=== PATIENT | male | born 1995 | race Caucasian/White ===

== ENCOUNTER 2020-07-13 11:57 | Outpatient (REF) | payer BC, SELFPAY | END 2020-07-13 11:58 | disposition home or self-care (01) | LOC: HO.WFDLDS 11:57 | PROVIDERS: Visit Provider Internal Medicine | DX: Z20.828 Contact with and (suspected) exposure to other viral communicable diseases (principal) | CPT/HCPCS: C9803; U0003 ==

== ENCOUNTER 2022-07-05 12:15 | Outpatient (REF) | payer BC, SELFPAY ==
[2022-07-05 14:13] LABS: MANUAL DIFF FLAG NO
[2022-07-05 14:22] LABS: Basophils Percent Auto 0.7 % (0-2); Eosinophils Absolute Auto 0.1 X10*3/uL (0.0-0.4); Eosinophils Percent Auto 1.3 % (0-4); Hematocrit 42.2 % (42.0-52.0); Hemoglobin 15.1 g/dl (14.0-18.0); Imm Gran Abs Auto 0.02 X10*3/uL (0.00-0.03); Imm Gran Pct Auto 0.4 % (0.0-0.4); Lymphocytes Absolute Auto 1.6 X10*3/uL (1.2-4.9); Lymphocytes Percent Auto 28.2 % (20-40); Mean Corpuscular HGB Conc 35.8 g/dl (31.0-36.0); Mean Corpuscular Hemoglobin 31.5 pg (27.0-33.0); Mean Corpuscular Volume 87.9 fL (80.0-98.0); Mean Platelet Volume 11.8 fL (9.4-12.4); Monocytes Absolute Auto 0.4 X10*3/uL (0.1-1.2); Neutrophils Absolute Auto 3.5 x10*3/uL (2.0-8.3); Neutrophils Percent Auto 62.4 % (45-73); Platelet Count 276 X10*3/uL (160-400); Red Cell Distribution Width 11.5 % (11.0-16.0); White Blood Count 5.5 X10*3/uL (4.8-10.8)
[2022-07-05 15:01] LABS: Anion Gap 15 (12-20); Blood Urea Nitrogen 11 mg/dL (9-16); Calcium 9.6 mg/dL (8.4-10.2); Carbon Dioxide 28 mmol/L (22-29); Chloride 103 mmol/L (96-108); Cholesterol 146 mg/dL; Estimated Glomerular Filt Rate > 60; Glucose Random 83 mg/dL (60-115); Potassium 4.3 mmol/L (3.3-5.1); Sodium 142 mmol/L (135-145)
[2022-07-05 15:04] LABS: Thyroid Stimulating Hormone 2.43 uIU/mL (0.32-4.0)
[2022-07-05 15:55] LABS: Vitamin B12 260 pg/mL (200-900)
== END 2022-07-05 12:16 | disposition home or self-care (01) ==
LOC: HO.10HDL 12:15
PROVIDERS: Visit Provider Internal Medicine
DX: Z00.00 Encounter for general adult medical examination without abnormal findings (principal); R53.83 Other fatigue
CPT/HCPCS: 36415; 80048; 82465; 82607; 84443; 85025

== ENCOUNTER 2022-09-13 08:27 | Outpatient (REF) | payer BC, SELFPAY ==
[2022-09-13 11:33] LABS: Alanine Aminotransferase 14 U/L (0-40); Albumin Level 4.4 g/dL (3.5-5.0); Alkaline Phosphatase 83 U/L (39-117); Anion Gap 13 (12-20); Aspartate Amino Transferase 17 U/L (5-37); Bilirubin Total 0.6 mg/dL (0.0-1.0); Blood Urea Nitrogen 12 mg/dL (9-16); Calcium 9.5 mg/dL (8.4-10.2); Carbon Dioxide 26 mmol/L (22-29); Chloride 105 mmol/L (96-108); Estimated Glomerular Filt Rate > 60; Glucose Random 90 mg/dL (60-115); Lipase 15 U/L (8-78); Potassium 4.3 mmol/L (3.3-5.1); Sodium 140 mmol/L (135-145); Total Protein 7.2 g/dL (6.5-8.0)
[2022-09-14 14:21] LABS: H Pylori Breath Test Negative (Negative)
== END 2022-09-13 08:28 | disposition home or self-care (01) ==
LOC: HO.LAB 08:27
PROVIDERS: PCP Internal Medicine; Visit Provider Nurse Practitioner Family
DX: R13.12 Dysphagia, oropharyngeal phase (principal); R10.13 Epigastric pain; K21.9 Gastro-esophageal reflux disease without esophagitis; R63.4 Abnormal weight loss
CPT/HCPCS: 36415; 80053; 83013; 83690

== ENCOUNTER 2022-09-19 09:47 | Day surgery (SDC) | payer BC, SELFPAY ==
--- NOTE | 2022-09-16 10:58 | HO.ANESPROP2 ---
Documented by User: Christianne Jordan NP 09/16/22 10:59 HPI - Anesthesia Eval Consult details Narrative: 26yo M for Upper Endoscopy [facility] [place] Active Problems Active Problems: All Active Problems (Updated 09/13/22 @ 16:50 by CHANI Shields) Dysphagia (Acute) Dyspepsia (Acute) Past Medical History Medical History (Updated 09/13/22 @ 16:50 by CHANI Shields) Dyspepsia Dysphagia Surgical History Surgical History (Updated 09/19/22 @ 10:40 by Tosha Mccormack) History of ankle surgery Social History Social History (Updated 09/13/22 @ 08:35 by Dileep Huynh) Household Members: Family Alcohol intake: never Patient Tobacco Use Status: Never used Tobacco Advance Directives: No Advance Directives Information Provided: Yes service: No Current occupational status: employed Sexual orientation: Straight/Heterosexual Meds Allergies Allergy/AdvReac Type Severity Reaction Status Date / Time diphenhydramine Allergy Unknown Verified 09/19/22 10:41 [From Benadryl] Home Medications Medication Instructions Recorded Confirmed Last Taken Type bupropion HCl 150 mg 24 hr tablet, 150 mg PO DAILY 09/13/22 09/19/22 Unknown History extended release buspirone 10 mg tablet 10 mg PO DAILY PRN Anxiety 09/13/22 09/19/22 Unknown History Exam Exam Date and Time: September 16, 2022 1058 Pertinent Lab Results Pertinent Lab Results: Laboratory Tests 07/05/22 09/13/22 12:20 09:42 WBC 5.5 Hgb 15.1 Hct 42.2 Plt Count 276 Sodium 140 Potassium 4.3 Chloride 105 Carbon Dioxide 26 BUN 12 Creatinine 0.85 Assessment and Plan Assessment Anesthesia Assessment: Chart Reviewed Documented by User: Mel Correa MD 09/19/22 11:24 [facility] Past Medical History Medical History (Updated 09/13/22 @ 16:50 by CHANI Shields) Dyspepsia Dysphagia Family History Family history of problems with anesthesia: No Surgical History Surgical History (Updated 09/19/22 @ 10:40 by Tosha Mccormack) History of ankle surgery History of Problems with Anesthesia: No Social History Social History (Updated 09/13/22 @ 08:35 by Dileep Huynh) Household Members: Family Alcohol intake: never Patient Tobacco Use Status: Never used Tobacco Advance Directives: No Advance Directives Information Provided: Yes service: No Current occupational status: employed Sexual orientation: Straight/Heterosexual Meds Allergies Allergy/AdvReac Type Severity Reaction Status Date / Time diphenhydramine Allergy Unknown Verified 09/19/22 10:41 [From Benadryl] Home Medications Medication Instructions Recorded Confirmed Last Taken Type bupropion HCl 150 mg 24 hr tablet, 150 mg PO DAILY 09/13/22 09/19/22 Unknown History extended release buspirone 10 mg tablet 10 mg PO DAILY PRN Anxiety 09/13/22 09/19/22 Unknown History Exam Airway Mallampati Class: II TM Dist: >3cm Neck ROM: Full Heart: rrr Lungs: cta Assessment and Plan Assessment Anesthesia Assessment: Anesthesia Plan Discussed and Chart Reviewed Final Anesthetic Review Family History of Problems with Anesthesia: No History of Problems with Anesthesia: No NPO: Yes ASA Class: II Final Preanesthetic Review: No Changes in Pt Med Stat, Meds/Allgs Chart Reviewed and Consent Obtained/Reviewed Patient Risk: Intermediate Procedure Risk: Intermediate Anesthetic Plan Anesthetic Plan: MAC: Disposition: Standard PACU
--- NOTE | 2022-09-19 10:38 | MHC.SHP ---
Pre-Procedural Eval Section A Date of Service: 09/19/22 The patient is an INPATIENT: No Changes since office visit: Yes Patient answered all questions; No Cold of Flu in the past 2 weeks, No New Medical Problems and No Changes in Medication The History & Physical has been completed within 30 days and I have reviewed it.: Yes Section B Chief Complaint: Dysphagia, Allergies: Allergies Allergy/AdvReac Type Severity Reaction Status Date / Time No Known Allergies Allergy Unverified 09/13/22 08:36 [No Known Allergies*] Plan I have reviewed the history and physical and performed a pertinent physical examination on my patient. No changes have occurred unless specified. Time Spent With Patient Time: Total time managing care of this patient today ____ minutes.
--- NOTE | 2022-09-19 10:39 | P.BOP_ITS ---
Brief Operative Note Date of Service: 09/19/22 Pre-op diagnosis: dysphagia, dyspepsia, WT LOSS Post-op diagnosis: other ( GERD, gastritis) Procedure: EGD WITH BIOPSIES Surgeon: Livia Gaitan MD Anesthesia: MAC Was an Medical Social Consultant used for this Procedure?: Yes Medical Social Consultant: Caridad Hewitt Estimated blood loss (mL): 0 Pathology: other (A: biopsy small bowel to rule out celiac disease B: gastric biopsy to rule out gastritis C: proximal esophagus to rule out gluten) Condition: stable Disposition: PACU
[2022-09-19 10:43] VITALS: BP 122/78; PULSE 69; RESP 16; TEMP 36.4; O2SAT 98; BMI 19.5
[2022-09-19] MEDS: Lactated Ringers 1,000 ML 100 ML IVCONT (11:04)
--- NOTE | 2022-09-19 11:31 | P.OP_ITS ---
Operative Note Operative Note Date of Service: 09/19/22 Narrative: Pre-op diagnosis: dysphagia, dyspepsia Post-op diagnosis:?other ( GERD, gastritis) Anesthesia:?MAC FLEXIBLE TRANSORAL UPPER GASTROINTESTINAL ENDOSCOPY WITH BIOPSIES Consent: Indications for the procedure and potential complications of bleeding, perforation, reaction to medications and missed diagnosis were discussed with the patient and informed consent was obtained. Instrument: Olympus GIF H 190 mid size upper endoscope Monitoring: Vital signs and clinical assessment, continuous EKG monitoring, Pulse oximetry, Carbon Dioxide monitoring and blood pressure monitoring were done throughout the procedure. Procedure: The patient was placed in the left lateral decubitis position and pre-procedure medications were administered and a bite block was placed. The endoscope was inserted into the mouth and advanced under direct vision to the third part of duodenum. A careful inspection was made as the upper endoscope was withdrawn including a retroflexed examination of the proximal stomach; Findings and interventions are described below. Findings: Larynx: Normal Esophagus: GE junction at 40 cms. No esophagitis or Acuña's, stricture or ring. Biopsies were obtained from proximal esophagus to check for EOE Stomach: Moderate diffuse gastric erythema. Biopsies were obtained. Grade 2 flap valve on retroflexed examination of the cardia. Duodenum: Normal bulb and descending duodenum. Biopsies were obtained from 3rd part of the duodenum to check for celiac sprue Intervention: Biopsies as noted above Impression and Post Procedure Diagnosis: Endoscopy Findings: ESOPHAGUS: GE junction at 40 cms. No esophagitis or Acuña's, stricture or ring. Biopsies were obtained from proximal esophagus to check for EOE STOMACH: Moderate diffuse gastric erythema. Biopsies were obtained. DUODENUM: Normal biopsied to check for celiac sprue Plan: Await pathology results Patient has an appointment on 10/03/22 in the GI Clinic with Dahiana Elder FNP- [place]. Above findings were reviewed with the patient and Gastritis handout was given in the discharge area
[2022-09-19 11:53] VITALS: BP 79/31; PULSE 75; RESP 20; TEMP 36.6; O2SAT 99
[2022-09-19 12:08] VITALS: BP 108/68; PULSE 66; RESP 16; TEMP 36.6; O2SAT 99
== END 2022-09-19 12:49 | disposition home or self-care (01) ==
PROVIDERS: PCP Internal Medicine; Visit Provider Internal Medicine Gastroenterology
PROC: 0DJ08ZZ Inspection of Upper Intestinal Tract, Via Natural or Artificial Opening Endoscopic (ICD-10-PCS; CPT 43235; principal; 2022-09-19 11:10)
DX: R13.10 Dysphagia, unspecified (principal); R10.13 Epigastric pain; R63.4 Abnormal weight loss; Z68.1 Body mass index [BMI] 19.9 or less, adult; K21.9 Gastro-esophageal reflux disease without esophagitis; K29.50 Unspecified chronic gastritis without bleeding
CPT/HCPCS: 43239; 88305; 88342

== ENCOUNTER → 2022-10-03 09:59 | Outpatient (BNVA) | payer BC, SELFPAY | PROVIDERS: PCP Internal Medicine; Visit Provider Nurse Practitioner Family | DX: Z13.89 Encounter for screening for other disorder (principal) ==

== ENCOUNTER 2025-06-10 16:16 | Outpatient (AMB) | payer BC, SELFPAY ==
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
[2025-06-10 16:22] VITALS: BP 130/72; PULSE 73; RESP 16; TEMP 36.5; O2SAT 96; BMI 23.0
--- OUTSIDE RECORDS SUMMARY | 2025-06-10 18:51 | XMS_ITS | Clinical Summary ---
Author Organization [facility] Address [address] [address] Phone Care Team Providers Care K 9 Handler/ Deputy Name Role Phone Dirk Bell MD Primary Care Provider Allergies Active Allergy Reactions Criticality Noted Date Comments Diphenhydramine Hcl 06/22/2022 Medications sertraline (ZOLOFT) 50 MG tablet Take 1 tablet by mouth every morning. 04/26/2023 Active ibuprofen (ADVIL,MOTRIN) 800 MG tablet Take 1 tablet (800 mg total) by mouth 3 (three) times a day for 3 days. then tid prn. 30 tablet 05/18/2023 Active cyclobenzaprine (FLEXERIL) 10 MG tablet Take 1 tablet (10 mg total) by mouth 3 (three) times a day as needed (muscle). 15 tablet 05/18/2023 Active Active Problems No known active problems Immunizations Immunization Administration Dates Next Due DTaP 11/13/2002, 9,04/16/1998,02/17,1997 [id number] FORMULATION 07/05/2009 HPV9 02/08/2016,04/07/2015,02/05/2015 Hepatitis B 07/16/1998,1997,1997 Hib,PRP-T 01/14/1999, 8,02/17/1998,12/19 INFLUENZA, SPLIT VIRUS, TRIV ALENT W/ PRESERVATIVE IM 09/02/2021 IPV 11/13/2002,02/17/1998,1997 Influenza Quadrivalent Prese rvative Free IM 07/12/2020 MMR 10/19/2001,10/22/1998 Meningococcal MCV4P 01/31/2014,12/02/2008 Pneumococcal conjugate, PCV 7 05/19/2000 Polio - OPV 10/22/1998 Tdap 12/02/2008 Varicella 10/25/2007,05/19/2000 Social History Tobacco Use Types Packs/Day Years Used Date Smoking Tobacco: Never Smokeless Tobacco: Never Tobacco Cessation:Counseling Given: Not Answered Alcohol Use Standard Drinks/Week Comments No 0 (1 standard drink = 0.6 oz pur e alcohol) Education Answer Date Recorded Are you interested in more education? Not on karyn e 12/30/2022 Are you concerned about learning? Not on file 12/30/2022 No 12/30/2022 No 12/30/2022 Digital Access Answer Date Recorded No 01/27/2023 No 01/27/2023 Reliable internet access at home? Not on file 01/27/2023 Device with a working camera? Not on file Sex and Gender Information Value Date Recorded Sex Assigned at Male 07/26/2022 1:52 AM EST Legal Sex Male 8:49 PM EDT Gender Identity Male 07/26/2022 1:52 AM EST Sexual Orientation Not on file Last Filed Vital Signs Vital Sign Reading Time Taken Comments Blood Pressure 116/70 05/18/2023 11:56 AM EDT Pulse 68 05/18/2023 11:56 AM EDT Temperature 36.8 C (98.3 F) 05/18/2023 11:56 AM EDT Respiratory Rate 18 05/18/2023 11:56 AM EDT Oxygen Saturation 99% 05/18/2023 11:56 AM EDT Inhaled Oxygen Concentration - - Weight 72.6 kg (160 lb) 05/18/2023 11:56 AM EDT Height 182.9 cm (6') 07/16/2017 5:24 PM EST Body Mass Index 21.7 07/16/2017 5:24 PM EST Plan of Treatment Health Maintenance Due Date Last Done Comments DEPRESSION SCREENING 2009 HEPATITIS C SCREENING 2015 HIV ONE-TIME SCREENING (18-65 YEARS) 2015 Adult Td,Tdap Booster 12/02/2018 12/02/2008 INFLUENZA VACCINE (#1) 2025 1, 07/12/2020, 07/05/2009 COVID-19 VACCINE ( season) 2025 09/02/2021, 01/31/2021, 01/08/2021 HIB VACCINES Completed 01/14/1999, 04/04, 02/17/1998, Additional history exists PNEUMOCOCCAL VACCINES (0-49 years) Aged Out 05/19/2000 No longer eligible based on patient's age to complete this topic MENINGOCOCCAL VACCINES (ACWY) Completed 01/31/2014, 12/02/2008 SMOKING STATUS SCREENING (Once After 26 Yrs) Completed 05/18/2023 HEPATITIS A VACCINES Aged Out No long er eligible based on patient's age to complete this topic MENINGOCOCCAL VACCINES (B) Aged Out N o longer eligible based on patient's age to complete this topic Medical Devices Not on file Insurance [facility] PPO EPO [facility] PPO EPO [facility] PPO EPO [facility] PPO EPO [facility] PPO EPO [facility] PPO [facility]PO [facility] [place] [address] [place] [address] [place] [address] [place] [address] PPO EPO Care Teams K 9 Handler/ Deputy Relationship Specialty Start Date End Date Dirk Bell MD [address] [place] [address] [place] [address] PCP - General Internal Medicine 06/22/22 Additional Source Comments The information contained in this document represents components of the legal health record. It is not the complete legal health record.[facility]
--- OUTSIDE RECORDS SUMMARY | 2025-06-10 18:51 | XMS_ITS | Encounter Summary ---
Author Organization [facility] Address [address] [place] [phone] Phone Care Team Providers Care Life Skills Educator Name Role Phone Monet Castañeda MD Primary Care Provider Unavailabl e Encounter Details Date Type Department Care Team (Late st Contact Info) Description 01/21/2018 Conversion Encounter [facility] [address] [id number] Social History Tobacco Use Types Packs/Day Years Used Date Smoking Tobacco: Never Assessed Sex and Gender Information Value Date Recorded Sex Assigned at Not on file Legal Sex Male 6:16 PM EDT Gender Identity Not on file Sexual Orientation Not on file documented as of this encounter Plan of Treatment Not on file documented as of this encounter Visit Diagnoses Not on filedocumented in this encounter Care Teams Life Skills Educator Relationship Specialty Start Date End Date Monet Castañeda MD PCP - General 02/20/20 documented as of this encounter
--- OUTSIDE RECORDS SUMMARY | 2025-06-10 18:51 | XMS_ITS | Clinical Summary ---
Author Organization [facility] Address [address] [place] [phone] Phone Care Team Providers Care Iv Therapy Nurse Name Role Phone Monet Castañeda MD Primary Care Provider Unavailabl e Immunizations Immunization Administration Dates Next Due DTaP 11/13/2002, 9,04/16/1998, 998,1997 H1N1 07/05/2009 HPV Vaccine 9 Valent 02/08/2016,04/07/2015,02/05 Hep B, ped/adol 07/16/1998,1997,1997 Hib (PRP-T) 01/14/1999, 8,02/17/1998, 998 IPV 11/13/2002,02/17/1998,1997 MMR 10/19/2001,10/22/1998 Meningococcal Conj (Menactra) MCV4P 01/31/2014,0 12/02/2008 OPV 10/22/1998 Pneumococcal Conjugate 05/19/2000 Tdap 12/02/2008 Varicella 10/25/2007,05/19/2000 Family History Relation Name Status Comments Father Alive healthy, name i s darryl age: 50 Father's Sister Alive healthy Maternal Grandfather Alive healthy , hypertension, hyperlipidemia diagnosed with Hypertension, Hypercholesteremia Maternal Grandmother Alive healthy Mother Alive healthy, name i s jacki paulino age: 47 Other Alive Siblings: healt hy Paternal Grandfather Alive stroke, Niddm Paternal Grandmother Alive healthy Social History Tobacco Use Types Packs/Day Years Used Date Smoking Tobacco: Never Assessed Sex and Gender Information Value Date Recorded Sex Assigned at Not on file Legal Sex Male 6:16 PM EDT Gender Identity Not on file Sexual Orientation Not on file Last Filed Vital Signs Vital Sign Reading Time Taken Comments Blood Pressure 118/68 05/05/2016 12:00 AM EDT Pulse - - Temperature 36.1 C (97 F) 05/05/2016 12:00 AM EDT Respiratory Rate - - Oxygen Saturation - - Inhaled Oxygen Concentration - - Weight 62.2 kg (137 lb 3.2 oz) 05/05/2016 12:00 AM EDT Height 179.1 cm (5' 10.5 ) 05/05/2016 12:00 AM E DT Body Mass Index 19.41 05/05/2016 12:00 AM EDT Plan of Treatment Health Maintenance Due Date Last Done Comments DTaP,Tdap,and Td Vaccines (7 - Td or Tdap) 12/02/2018 12/02/2008, 11/13/2002, 01/14/1999, Additional history exists Influenza Vaccines (#1) 2025 COVID-19 Vaccine ( season) 2025 Hepatitis B Vaccines Completed 07/16/1998, 1997, 1997 HIB Vaccines Completed 01/14/1999, 04/04, 02/17/1998, Additional history exists Pneumococcal Vaccine Completed 05/19/2000 MMR Vaccines Completed 10/19/2001, 10/22/1998 IPV Vaccines Completed 11/13/2002, 10/05, 02/17/1998, Additional history exists Varicella Vaccines Completed 10/25/2007, 05/19/2000 Meningococcal Vaccine Completed 01/31/2014, 009 HPV Vaccines Completed 02/08/2016, 0812/2014, 02/05/2015 Hepatitis A Vaccines Aged Out No long er eligible based on patient's age to complete this topic Men B Vaccine Aged Out No longer elig ible based on patient's age to complete this topic Care Teams Iv Therapy Nurse Relationship Specialty Start Date End Date Monet Castañeda MD PCP - General 02/20/20
--- OUTSIDE RECORDS SUMMARY | 2025-06-10 18:51 | XMS_ITS | Clinical Summary ---
Author Organization [facility] Address [address] [place] [address] Care Team Providers Care Day Haul Or Farm Charter Bus Driver Name Role Phone Pcp, No Primary Care Provider Unavailabl e Allergies Active Allergy Reactions Criticality Noted Date Comments Diphenhydramine Unknown/Patient and Family Unable to Define Medium 06/22/2022 Medications sertraline (ZOLOFT) 25 MG tablet Take 1 tablet (25 mg total) by mouth daily. Active Active Problems No known active problems Social History Tobacco Use Types Packs/Day Years Used Date Smoking Tobacco: Never Assessed Sex and Gender Information Value Date Recorded Sex Assigned at Not on file Legal Sex Male 1:48 PM EST Gender Identity Not on file Sexual Orientation Not on file Last Filed Vital Signs Vital Sign Reading Time Taken Comments Blood Pressure 110/80 10/15/2024 2:14 PM EST Pulse 84 10/15/2024 2:14 PM EST Temperature 36.7 C (98 F) 10/15/2024 2:14 PM EST Respiratory Rate 16 10/15/2024 2:14 PM EST Oxygen Saturation 98% 10/15/2024 2:14 PM EST Inhaled Oxygen Concentration - - Weight 77.1 kg (170 lb) 10/15/2024 2:14 PM EST Height 177.8 cm (5' 10 ) 10/15/2024 2:14 PM EST Body Mass Index 24.39 10/15/2024 2:14 PM EST Plan of Treatment Health Maintenance Due Date Last Done Comments Hepatitis C Virus Screening 1997 HIV Screening 2010 DTaP/Tdap/Td Vaccines (1 - Tdap) 2016 Hepatitis B Vaccines (1 of 3 - 19+ 3-dose series) 2016 COVID-19 Vaccine (2023-2 5 season) 2025 HPV Vaccines (No Doses Required) Completed Pneumococcal Vaccine: Pediat anmol (0-5 Years) and At-Risk Patients (6 to 49 Years) Aged Out No longer eligible b ased on patient's age to complete this topic Care Teams Day Ha[employer] Farm Charter Bus Driver Relationship Specialty Start Date End Date Pcp, No PCP - General General Medicine 10/15/24
--- OUTSIDE RECORDS SUMMARY | 2025-06-10 18:51 | XMS_ITS ---
Author Name [facility] Organization Unknown Encounters Encounter Type Encounter Reason Primary Diagnosis Location Date Ambulatory Encounter for other administrative examinations Encounter for other administrative examinations [facility] 10/15/2024 Care Team Organization Name Specialty Phone Email Start Date End [facility] PCP Coordinator Skill Training Program 11/13/2024 11/25/2024 [facility] NO PCP Primary Care 10/15/2024
== END 2025-06-10 17:06 | disposition home or self-care (01) ==
LOC: HO.HMCHD 16:17
PROVIDERS: PCP Internal Medicine; Visit Provider Physician Assistant
DX: Z00.00 Encounter for general adult medical examination without abnormal findings (principal); F32.9 Major depressive disorder, single episode, unspecified; L24.7 Irritant contact dermatitis due to plants, except food

== ENCOUNTER → 2025-06-10 16:16 | Outpatient (BNVA) | payer BC, SELFPAY | PROVIDERS: PCP Internal Medicine; Visit Provider Physician Assistant | DX: Z00.00 Encounter for general adult medical examination without abnormal findings (principal); F32.9 Major depressive disorder, single episode, unspecified; L24.7 Irritant contact dermatitis due to plants, except food | CPT/HCPCS: 96127 ==

== ENCOUNTER → 2025-08-25 15:50 | Outpatient (AMB) | payer BC, SELFPAY ==
--- NOTE | 2025-08-25 15:56 | MHC.PC.OV ---
Vital Signs 08/25/25 15:59 Height 5 ft 11 in Weight 74.616 kg BMI 22.9 BP 124/72 Pulse 72 Pulse Source Pulse Oximeter Temp 99.1 F Temp Source Temporal Artery Scan Pulse Oximetry (%) 98 Oxygen Delivery Method Room Air Intake Visit Reasons: Re-Evaluate Chronic Condition Auto Fleet Maintenance Manager Required: No Accompanied by: Self / Same As Patient Allergies diphenhydramine (From Benadryl) Allergy (Verified 08/25/25 15:56) Unknown Medication List - Last Reconciled 08/25/25 by AUGUSTA Khan albuterol sulfate 90 mcg/actuation (Ventolin HFA) 2 puffs inhalation QID PRN sertraline 50 mg PO DAILY Tobacco use date assessed: 06/10/25 Dental Screening Dental Screen Date: 06/10/25 HPI HPI Comments History of Present Illness Details 29-year-old male with history of anxiety presenting to the office today for follow-up. MDD/anxiety- stable on Zoloft. No si/hi. Therapy every other week. Reports exercises very helpful for his mood. Has had some anxiety significant to result in gagging and vomiting brought on by anxiety. Lately, he has been very anxious about returning to 2nd shift. He states historically, this has decompensated his mental health conditions. The very thought of going to the shift also causes great distress. Concerns: Rashes-linear rashes several areas of the body. They are pruritic. No erythema or warmth. No new contacts URI- ongoing for the last 4 days. Initially was experiencing severe headache, chest congestion, burning nasal patches. He was experiencing sweats but no fevers or shaking chills. He does state that he is feeling somewhat better but is still experiencing throat irritation and productive cough with green sputum. There is also shortness of breath or wheezing. No chest pains ROS: See HPI EXAM: Constitutional - Awake and Alert, No apparent distress Eyes - PERRLA, EOMI. Anicteric Nose- no sinus tenderness Mouth/throat- mucosa moist, tongue and uvula midline, no erythema/edema or tonsillar adenopathy Neck-trachea midline, thyroid symmetric without palpable nodules, no adenopathy Cardiovascular - S1S2, RRR, No edema Respiratory - Normal lung expansion, Normal respiratory effort, No respiratory distress, CTA bilaterally Extremities - no calf tenderness bilaterally, no swelling Skin - Warm/Dry. slightly hyperpigmented linear lesions about 3 cm by 2 mm on the upper back, right side without any surrounding erythema warmth, tunneling, pustules Neurological - Alert & oriented x3 Psychological - Appropriate affect cdh monday after poison jasmine ended up with cellulitis uri monday- headache, chest congestion, burning nasal. no fevers, or chills. sweated. overall feeling better. but still with throat irritation and green sputum production. sob, wheezing. note for work- waking dry heaving sometimes vomiting. anxiety. everything spirals as far as anxiety. PFSH Medical History (Updated 08/25/25 @ 16:43 by AUGUSTA Khan) Anxiety MDD (major depressive disorder) Dysphagia Dyspepsia Surgical History History of esophagogastroduodenoscopy (EGD) History of ankle surgery Family History (Updated 06/10/25 @ 16:51 by AUGUSTA Khan) Father Skin cancer Mother Depression with anxiety Social History Household Members: Family Housing: House Alcohol intake: never Patient Tobacco Use Status: Never used Tobacco e-Cigarette/Vaping Use: Never Used service: No Current occupational status: employed Sexual orientation: Straight/Heterosexual Questionnaire AUDIT C Alcohol Use Questionnaire (AUDIT-C) 2. How many drinks containing alcohol do you have on a typical day when you are drinking?: 1 or 2 3. How often do you have six or more drinks on one occasion?: Never Total Score: 0 Physical exam (Primary Care) Vital Signs: Last Vital Signs Temp 99.1 F 08/25/25 15:59 Pulse 72 08/25/25 15:59 BP 124/72 08/25/25 15:59 Pulse Ox 98 08/25/25 15:59 Oxygen Delivery Method Room Air 08/25/25 15:59 BMI result Body Mass Index 22.9 Tobacco/Smoking Status: Tobacco use Status Tobacco use date assessed 06/10/25 08/25/25 15:57 Patient Tobacco Use Status Never used Tobacco 08/25/25 15:57 e-Cigarette/Vaping Use Never Used 08/25/25 15:57 Coding Level of Care Code Est Pt Level 4 (19795) Diagnoses Anxiety F41.9 Dermatitis, unspecified L30.9 Viral URI J06.9 Assessment & Plan Assessment & Plan (1) Anxiety: Code(s): F41.9 - Anxiety disorder, unspecified Category: Medical Plan: Decompensated secondary to work stresses. He is given work note excusing him from 2nd shift as this will adversely affect his mental health. Continue following with therapist weekly and continue on sertraline 50 mg daily. Discussed that he may want to look into FMLA (2) Dermatitis, unspecified: Code(s): L30.9 - Dermatitis, unspecified Category: Medical Plan: Etiology unclear. Referred to Dermatology for further evaluation and management (3) Viral URI: Code(s): J06.9 - Acute upper respiratory infection, unspecified Category: Medical Plan: Symptomatic measures with cough syrups PRN, nasal sprays, sinus rinses, Tylenol as needed. He is given albuterol inhaler to help with cough/shortness of breath/wheezing. Counseled on use Plan Follow-up in the office as scheduled Orders: Referrals Dermatology Referral L30.9 - Dermatitis, unspecified, Z12.83 - Encounter for screening for malignant neoplasm of skin, Z80.8 - Family history of malignant neoplasm of other organs or systems Medications: New albuterol sulfate 90 mcg/actuation (Ventolin HFA) 2 puffs inhalation QID PRN 8.5 grams 0RF shortness of breath or wheezing
[2025-08-25 15:59] VITALS: BP 124/72; PULSE 72; TEMP 37.3; O2SAT 98; BMI 22.9
--- OUTSIDE RECORDS SUMMARY | 2025-08-25 18:40 | XMS_ITS | Encounter Summary ---
Author Organization [facility] Address [address] [place] [phone] Phone Care Team Providers Care Transit Mixer Operator Name Role Phone Monet Castañeda MD Primary Care Provider Unavailabl e Encounter Details Date Type Department Care Team (Late st Contact Info) Description 01/21/2018 Conversion [facility]counter [facility] [address] [address] Social History Tobacco Use Types Packs/Day Years [...] on filedocumented in this encounter Care Teams Transit Mixer Operator Relationship Specialty Start Date End Date Monet Castañeda MD PCP - General 02/20/20 documented as of this encounter
--- OUTSIDE RECORDS SUMMARY | 2025-08-25 18:40 | XMS_ITS | Clinical Summary ---
Author Organization Located Within [facility] Address [address] [facility] [address] [place] [address] Phone Care Team Providers Care Aircraft Loadmaster Superintendent Name Role Phone Dirk Bell MD Primary Care Provider Allergies Active Allergy Reactions Criticality Noted Date Comments Diphenhydramine Hcl 06/22/2022 Medications sertraline (ZOLOFT) 50 MG tablet Take 1 tablet by mouth every morning. 04/26/2023 Active Active Problems Problem Noted Date Diagnosed Date Cellulitis 06/14/2025 Assessment & Plan (06/14/2025 3:58 AM EDT): Patient presented with right lower extremity cellulitis with lymphangitic spread towards his calf in the setting of a contact dermatitis. Mild tenderness over the calf with no evidence of palpable cords. Patient remained afebrile and hemodynamically stable. Laboratory studies otherwise reassuring, without significant leukocytosis or left shift. Initially received IV ceftriaxone but will switch to IV Ancef for better strep and MSSA coverage. MRSA screen was negative. - Patient will be observed on MedSurg -Repeat CBC in the morning -Continue IV switch to IV Ancef 2 g every 8 hours along with lactobacillus twice daily -Continue leg elevation -Tylenol as needed for mild pain Encounters Date Type Department Care Team Description 06/14/2025 12:17 AM EDT - 06/15/2025 3:37 PM EDT Hospital Encounter [facility] [address] [place] [address] Kevin Harris MD Wong, MD Hernán Castro Lois C, MD Discharge Disposition: Home or Self Care from Last 3 Months Immunizations Immunization Administration Dates Next Due DTaP 11/13/2002, 9,04/16/1998,02/17,1997 [id number] FORMULATION 07/05/2009 HPV9 02/08/2016,04/07/2015,02/05/2015 Hepatitis B 07/16/1998,1997,1997 Hib,PRP-T 01/14/1999, 8,02/17/1998,12/19 INFLUENZA, SPLIT VIRUS, TRIVALENT PF 06/15/2025 INFLUENZA, SPLIT VIRUS, TRIV ALENT W/ PRESERVATIVE [...] on file 12/30/2022 No 12/30/2022 No 12/30/2022 Food Answer Date Recorded Within the past 6 months we worried whether our food would run out before we got money to buy more. Never True 06/14/2025 Within the past 6 months the food we bought just didn't last and we didn't have enough money to get more. Never True Residential Stability Answer Date Recor ded What is your housing situation today? I have mony [place] 06/14/2025 How many times have you move d in the past 12 months? Zero (I did not move) 06/14/2025 Paying for Meds Answer Date Recorded Do you have trouble paying for medicines? No 06/14/2025 Paying Utility Bills Answer Date Record ed Do you have trouble paying your heating or elect ricity bill? No 06/14/2025 Transportation Answer Date Recorded Has the lack of transportati on kept you from medical appointments or from getting medications? No 06/14/2025 Digital Access Answer Date Recorded No 06/14/2025 Yes 06/14/2025 Do you have reliable internet access at home? Ye s 06/14/2025 Do you have a device (e.g., phone, tablet, computer) with a working camera? Yes 06/14/2025 Intimate Partner Violence Answer Date R ecorded Are you denied basic needs s uch as food, clothing, or medical care? No 06/13/2025 In the past 12 months have y ou been in a relationship with a person who hurts, threatens, or tries to control you? No 06/13/2025 Are you denied basic needs s uch as food, clothing, or medical care? No 06/13/2025 In the past 12 months have y ou been in a relationship with a person who hurts, threatens, or tries to control you? No 06/13/2025 Sex and Gender Information Value Date Recorded Sex Assigned at Male 07/26/2022 1:52 AM EST Legal Sex Male 8:49 PM EDT Gender Identity Male 07/26/2022 1:52 AM EST Sexual Orientation Straight 06/14/2025 9: 12 AM EDT Last Filed Vital Signs Vital Sign Reading Time Taken Comments Blood Pressure 113/72 06/15/2025 3:02 PM EDT Pulse 91 06/15/2025 3:02 PM EDT Temperature 36.7 C (98.1 F) 06/15/2025 3:02 PM EDT Respiratory Rate 20 06/15/2025 3:02 PM EDT Oxygen Saturation 97% 06/15/2025 3:02 PM EDT Inhaled Oxygen Concentration - - Weight 74.8 kg (165 lb) 06/14/2025 9:09 AM EDT Height 180.3 cm (5' 11 ) 06/14/2025 9:09 AM EDT Body Mass Index 23.01 06/14/2025 9:09 AM EDT Plan of Treatment Health Maintenance Due Date Last Done Comments DEPRESSION SCREENING 2009 HEPATITIS C SCREENING 2015 HIV ONE-TIME SCREENING (18-65 YEARS) 2015 Adult Td,Tdap Booster 12/02/2018 12/02/2008 COVID-19 VACCINE ( season) 2025 09/02/2021, 01/31/2021, 01/08/2021 HIB VACCINES Completed 01/14/1999, 04/04, 02/17/1998, Additional history exists PNEUMOCOCCAL VACCINES (0-49 years) Aged Out 05/19/2000 No longer eligible based on patient's age to complete this topic MENINGOCOCCAL VACCINES (ACWY) Completed 01/31/2014, 12/02/2008 SMOKING STATUS SCREENING (Once After 26 Yrs) Completed 06/14/2025 INFLUENZA VACCINE Completed 06/15/2025, , 07/12/2020, Additional history exists HEPATITIS A VACCINES Aged Out No long er eligible based on patient's age to complete this topic MENINGOCOCCAL VACCINES (B) Aged Out N o longer eligible based on patient's age to complete this topic Medical Devices Not on file Procedures Procedure Name Priority Date/Time Associated Diagnosis Comments CBC AND DIFFERENTIAL STAT 06/15/2025 1:43 PM EDT BASIC METABOLIC PANEL (BMP) STAT 06/15/2025 1:43 PM EDT CBC AND DIFFERENTIAL Routine 06/14/2025 6:37 AM EDT COMPREHENSIVE METABOLIC PANEL (CMP) Routine 06/14/2025 6:37 AM EDT PT-INR STAT 06/14/2025 12:58 AM EDT LACTIC ACID (LACTATE) STAT 06/14/2025 12:58 AM EDT BASIC METABOLIC PANEL (BMP) STAT 06/14/2025 12:58 AM EDT CBC AND DIFFERENTIAL STAT 06/14/2025 12:58 AM EDT BLOOD CULTURE, ROUTINE STAT 12:58 AM EDT BLOOD CULTURE, ROUTINE STAT 12:58 AM EDT MRSA PCR SCREEN Routine 06/14/2025 12:42 AM EDT from Last 3 Months Results * (ABNORMAL) CBC and differential (06/15/2025 1:43 PM EDT) Only the most recent of3 resultswithin the time period is included. WBC 7.50 4.00 - 11.00 K/uL [facility] RBC 4.59 4.50 - 5.90 M/uL [facility] HGB 14.3 13.5 - 17.5 g/dL [facility] HCT 41.7 41.0 - 53.0 % [facility] PLT 252 150 - 450 K/uL [facility] MCV 90.8 80.0 - 100.0 fL [facility] MCH 31.2(H) 27.0 - 31.0 pg [facility] MCHC 34.3 32.0 - 36.0 g/dL [facility] RDW 11.9 11.5 - 14.5 % [facility] MPV 11.1 8.4 - 12.0 fL [facility] NRBC 0.00 0.00 /100 WBCs [facility] ABSOLUTE NRBC 0.00 0.00 K/uL [facility] DIFF METHOD Auto [facility] NEUTS 69.2 48.0 - 76.0 % [facility] LYMPHS 21.6 18.0 - 41.0 % [facility] MONOS 7.3 4.0 - 11.0 % [facility] EOS 1.2 0.0 - 5.0 % [facility] BASOS 0.4 0.0 - 1.5 % [facility] Granulocytes, immature (%) 0.3 0.0 - 0.9 % [facility] ABSOLUTE NEUTS 5.19 1.92 - 7.60 K/uL [facility] ABSOLUTE LYMPHS 1.62 0.72 - 4.10 K/uL [facility] ABSOLUTE MONOS 0.55 0.16 - 1.10 K/uL [facility] ABSOLUTE EOS 0.09 0.00 - 0.50 K/uL [facility] ABSOLUTE BASOS 0.03 0.00 - 0.15 K/uL [facility] Granulocytes, immature 0.02 0.00 - 0.09 K/uL [facility] Blood 06/15/2025 1:43 PM EDT 06/15/2025 1:50 PM EDT us Merlyn Jim MD LAB BLOOD BKR ORDERABLES Final Result Performing Organization Address City/[facility]/ZIP Co de Phone Number [address] [address] * Basic metabolic panel (06/15/2025 1:43 PM EDT) Only the most recent of2 resultswithin the time period is included. SODIUM 142 133 - 146 mmol/L [facility] CHLORIDE 102 96 - 108 mmol/L [facility] POTASSIUM 4.2 3.3 - 5.1 mmol/L [facility] CO2 30 21 - 35 mmol/L [facility] BUN 13 6 - 19 mg/dL [facility] CREATININE 0.80 0.5 - 1.5 mg/dL [facility] GLUCOSE 78 70 - 99 mg/dL [facility] CALCIUM 9.4 8.4 - 10.3 mg/dL [facility] EGFR >120 >59 mL/min/1.7 3m2 [facility] Comment:Estimated glomerular filtration rate calculated using the CKD-EPI refit equation. ANION GAP 14 10 - 20 mmol/L [facility] Blood 06/15/2025 1:43 PM EDT 06/15/2025 1:50 PM EDT us Merlyn Jim MD LAB BLOOD BKR ORDERABLES Final Result [address] [address] * Comprehensive metabolic panel (06/14/2025 6:37 AM EDT) SODIUM 142 133 - 146 mmol/L [facility] POTASSIUM 3.7 3.3 - 5.1 mmol/L [facility] CHLORIDE 102 96 - 108 mmol/L [facility] CO2 27 21 - 35 mmol/L [facility] BUN 14 6 - 19 mg/dL [facility] CREATININE 0.70 0.5 - 1.5 mg/dL [facility] GLUCOSE 90 70 - 99 mg/dL [facility] ALBUMIN 4.4 3.9 - 4.8 g/dL [facility] TOTAL PROTEIN 6.9 6.5 - 8.0 g/dL [facility] CALCIUM 9.2 8.4 - 10.3 mg/dL [facility] ALKALINE PHOSPHATASE 76 39 - 117 U/L [facility] TOTAL BILIRUBIN 0.5 0.0 - 1.2 mg/dL [facility] AST 17 0 - 37 U/L [facility] ALT 13 0 - 40 U/L [facility] GLOBULIN 2.5 1 - 4.8 g/dL [facility] EGFR >120 >59 mL/min/1.7 3m2 [facility] Comment:Estimated glomerular filtration rate calculated using the CKD-EPI refit equation. ANION GAP 17 10 - 20 mmol/L [facility] Blood 06/14/2025 6:37 AM EDT 06/14/2025 6:45 AM EDT us Willy Mata MD LAB BLOOD BKR ORDERABLES Final Result [address] [address] * Blood Culture, Routine (06/14/2025 12:58 AM EDT) Only the most recent of2 resultswithin the time period is included. Special Requests None 06/14/2025 12:40 AM EDT [facility] BLOOD CULTURE NO GROWTH 5 DAYS 06/19/2025 2:09 AM EDT [facility] Blood (Blood) 06/14/2025 12: 58 AM EDT 06/14/2025 1:02 AM EDT Kevin Harris MD LAB MICROBIOLOGY CULTURE ORDERABLES Final Result Performing Organization Address City/[facility]/ZIP Co de Phone Number [address] [address] * PT-INR (06/14/2025 12:58 AM EDT) [facility] PT 11.4 10.2 - 12.9 sec [facility] INR 0.9 0.9 - 1.1 [facility] Comment:Therapeutic range fo r oral Vitamin K antagonists: 2.0-3.5 Blood 06/14/2025 12:5 8 AM EDT 06/14/2025 1:02 AM EDT Kevin Harris MD LAB BLOOD BKR ORD ERABLES Final Result Performing Organization Address [facility]/ZIP Co de Phone Number [address] [address] * Lactate (06/14/2025 12:58 AM EDT) [facility] LACTATE 1.00 0.50 - 2.20 mmol/L [facility] Blood 06/14/2025 12:5 8 AM EDT 06/14/2025 1:02 AM EDT Kevin Harris MD LAB BLOOD BKR ORD ERABLES Final Result Performing Organization Address City/[facility]/ZIP Co de Phone Number [address] [address] * MRSA PCR SCREEN (06/14/2025 12:42 AM EDT) [facility] MRSA PCR SCREEN Negative Negative [facility] Comment:The Xpert MRSA Assay is intended to aid in the prevention and control of MRSA infections in healthcare settings. The assay is not intended to diagnose nor to guide or monitor treatment for MRSA infections. 06/14/2025 12:4 2 AM EDT 06/14/2025 1:04 AM EDT Kevin Harris MD LAB GENERAL ORDER KAILYN Final Result Performing Organization Address City/State/[facility] Co de Phone Number [address] [address] from Last 3 Months Insurance BLUE CROSS OUT [place] [address] [place] [address] CROSS OUT OF STATE PPO BLUE CROSS OUT OF STATE PPO BLUE CROSS OUT OF STATE PPO BLUE CROSS OUT OF STATE PPO BLUE CROSS OUT OF STATE PPO Advance Directives For more information, please contact: [phone] (9AM - 5PM [place], Monday-Monday) Documents on File Type Date Recorded Patient Video Production Intern Expl anation Healthcare Proxy 06/17/2025 4:44 PM * Full Code (Latest Code Status on File) Date Activated Date Inactivated Comments 06/14/2025 2:34 AM Question Answer Comments Code Status Confirmed With: Patient Code Status Communicated To: Inpatient Attending Care Teams Aircraft Loadmaster Superintendent Relationship Specialty Start Date End Date Dirk Bell MD [address] [place] [address] [place] [address] PCP - General Internal Medicine 06/22/22 Additional Source Comments The information contained in this document represents components of the legal health record. It is not the complete legal health record.Located Within [facility]
--- OUTSIDE RECORDS SUMMARY | 2025-08-25 18:40 | XMS_ITS | Clinical Summary ---
Author Organization [facility] Address [address] [place] [phone] Phone Care Team Providers Care Plasterer Helper Name Role Phone Monet Castañeda MD Primary [...] age to complete this topic Care Teams Plasterer Helper Relationship Specialty Start Date End Date Monet Castañeda MD PCP - General 02/20/20
== END ==
LOC: HO.HMCHD 15:51
PROVIDERS: PCP Physician Assistant; Visit Provider Physician Assistant
DX: F41.9 Anxiety disorder, unspecified (principal); L30.9 Dermatitis, unspecified; J06.9 Acute upper respiratory infection, unspecified